=== PATIENT | female | born 1930 | race Caucasian/White ===

== ENCOUNTER 2018-10-17 22:32 | Emergency (ER) | payer OTHER ==
[~2018-10-17] VITALS: Ht 152.4 cm; Wt 53.1 kg
[2018-10-17 22:43] VITALS: Ht 152.4 cm; Wt 53.1 kg
[2018-10-18 01:19] LABS: CALCIUM 10.7 mg/dL (8.5-10.1); CARBON DIOXIDE 27.4 mmol/L (21-32); CHLORIDE SERUM 104 mmol/L (98-107); CREATININE SERUM 1.1 mg/dL (0.6-1.0); GLUCOSE SERUM 123 mg/dL (74-106); POTASSIUM SERUM 4.1 mmol/L (3.5-5.1); SODIUM SERUM 141 mmol/L (136-145)
[2018-10-18 02:20] VITALS: BP 163/37
== END 2018-10-18 01:54 | disposition home or self-care (01) ==
LOC: ED 22:32
PROVIDERS: Emergency Medicine
DX: I16.0 Hypertensive urgency (principal); M19.90 Unspecified osteoarthritis, unspecified site; Z88.0 Allergy status to penicillin
CPT/HCPCS: 36415